=== PATIENT | female | born 1980 | race Caucasian/White ===

== ENCOUNTER 2023-03-05 10:41 | Emergency (ER) | payer OTHER ==
[2023-03-05] MEDS ORDERED: Sodium Chloride 0.9% 10 ML Syringe FLUSH PRN (10:50)
[2023-03-05] MEDS ORDERED: Sodium Chloride 0.9% 2.5 ML Syringe FLUSH PRN (10:50)
[2023-03-05] MEDS ORDERED: Aspirin 81 MG Tab.Chew PO STA (10:55)
[2023-03-05 11:15] LABS: BASOPHILS PERCENT AUTO 0.4 % (0.0-1.5); EOSINOPHILS ABSOLUTE AUTO 0.1 K/uL (0.0-0.7); EOSINOPHILS PERCENT AUTO 1.7 % (0.0-7.0); HEMATOCRIT 39.1 % (36.0-46.0); HEMOGLOBIN 12.8 g/dL (12.0-16.0); LYMPHOCYTES ABSOLUTE AUTO 1.9 K/uL (0.6-2.4); LYMPHOCYTES PERCENT AUTO 26.7 % (16.0-40.0); MEAN CORPUSCULAR HEMOGLOBIN 28.2 pg (27.0-32.0); MEAN CORPUSCULAR HGB CONC 32.7 g/dL (31.0-37.0); MEAN CORPUSCULAR VOLUME 86.1 fL (80.0-98.0); MONOCYTES ABSOLUTE AUTO 0.3 K/uL (0.0-0.8); MONOCYTES PERCENT AUTO 4.6 % (0.0-15.0); NEUTROPHILS ABSOLUTE AUTO 4.8 K/uL (1.4-5.7); NEUTROPHILS PERCENT AUTO 66.6 % (48.0-80.0); NRBC ABSOLUTE 0 K/uL; PLATELET COUNT,PLT 228 K/uL (150-400); RED BLOOD CELL COUNT 4.54 M/uL (4.30-5.90); WHITE BLOOD CELL COUNT,WBC 7.18 K/uL (4.0-11.0)
[2023-03-05 11:30] LABS: INR 1.02 (0.86-1.11)
[2023-03-05 11:44] LABS: A/G RATIO 1.2 (0.9-1.6); ALANINE AMINOTRANSFERASE,ALT 68 IU/L (14-63); ALBUMIN 3.8 g/dL (3.4-5.0); ALKALINE PHOSPHATASE 63 U/L (46-116); ASPARTATE AMNIOTRANSFERASE,AST 32 IU/L (15-37); BILIRUBIN TOTAL 0.4 mg/dL (0.2-1.0); BLOOD UREA NITROGEN,BUN 8 mg/dL (7.0-18.0); CALCIUM 8.9 mg/dL (8.5-10.1); CARBON DIOXIDE,CO2 26.3 mmol/L (21.0-32.0); CHLORIDE,CL 106 mmol/L (98-107); CREATININE 0.7 mg/dL (0.6-1.0); GLUCOSE RANDOM 109 mg/dL (74-106); LIPASE 73 U/L (73-393); POTASSIUM,K 4.2 mmol/L (3.5-5.1); PROTEIN TOTAL,TP 7.1 g/dL (6.4-8.2); SODIUM,NA 143 mmol/L (136-145)
[2023-03-05 11:45] LABS: ESTIMATED GFR 109 mL/min (>60)
[2023-03-05 13:24] VITALS: BP 109/84; PULSE 63
== END 2023-03-05 13:25 | disposition home or self-care (01) ==
LOC: MW.ED 10:41
DX: R07.9 Chest pain, unspecified (principal); J45.909 Unspecified asthma, uncomplicated; Z91.012 Allergy to eggs; Z91.040 Latex allergy status; Z91.09 Other allergy status, other than to drugs and biological substances; Z88.0 Allergy status to penicillin
CPT/HCPCS: 36415; 71046; 80053; 83690; 83735; 84484; 85025; 85379; 85610; 99285; A9270; J3490; 93005; 93010; 99284